=== PATIENT | female | born 1980 | race Caucasian/White ===

== ENCOUNTER → 2018-08-31 | Outpatient (CLI) | payer OTHER ==
[~2018-08-31] MED LIST: AMBIEN10 MG PO; DARVOCET N 101 UDTAB PO; FLEXERIL10 MG PO; MACROBID 1100 MG/CAP PO; PROZAC40 MG PO; RESPIRDAL; VESICARE
== END ==
LOC: COL.PUL 10:00
DX: Z02.71 Encounter for disability determination (principal); F17.210 Nicotine dependence, cigarettes, uncomplicated; M51.26 Other intervertebral disc displacement, lumbar region